=== PATIENT | male | born 1950 | race Caucasian/White ===

== ENCOUNTER 2020-12-05 10:50 | Inpatient (IN) | payer SELFPAY ==
[~2020-12-05] VITALS: Ht 177.8 cm; Wt 93.6 kg
[2020-12-05 11:15] LABS: BASOPHILS ABSOLUTE AUTO 0.02 K/mm3 (0.00-0.23); BASOPHILS PERCENT AUTO 0 % (0-2); EOSINOPHILS ABSOLUTE AUTO 0.01 K/mm3 (0.00-0.68); EOSINOPHILS PERCENT AUTO 0 % (0-6); Hematocrit 32.4 % (37.0-53.0); Hemoglobin 11.9 g/dL (13.5-17.5); IMMATURE GRAN ABSOLUTE AUTO 0.08 K/mm3 (0.00-0.10); IMMATURE GRAN PERCENT AUTO 1 % (0-1); LYMPHOCYTES ABSOLUTE AUTO 0.68 K/mm3 (0.84-5.20); LYMPHOCYTES PERCENT AUTO 7 % (21-46); MONOCYTES ABSOLUTE AUTO 0.69 K/mm3 (0.16-1.47); MONOCYTES PERCENT AUTO 7 % (4-13); Mean Corpuscular HGB 39.3 pg (26.0-34.0); Mean Corpuscular HGB Conc 36.7 g/dL (31.5-36.5); Mean Corpuscular Volume 107 fL (80-100); Mean Platelet Volume 11.2 fL (9.1-12.4); NEUTROPHILS ABSOLUTE AUTO 8.89 K/mm3 (1.96-9.15); NEUTROPHILS PERCENT AUTO 86 % (41-73); NRBC ABSOLUTE 0.04 K/mm3 (0.00-0.02); NRBC Auto 0.4 /100 WBC (0.0-0.2); Platelet Count 206 K/mm3 (150-400); RDW Coefficient Variation 20.7 % (11.7-14.2); RDW Standard Deviation 77.6 fL (35.1-46.3); Red Blood Cell Count 3.03 M/mm3 (4.30-5.90); White Blood Cell Count 10.37 K/mm3 (4.00-11.30)
[2020-12-05 11:36] LABS: Magnesium, Blood 2.4 mg/dL (1.6-2.4)
[2020-12-05 11:41] LABS: Alanine Aminotransfer (ALT/SGP 101 U/L (12-78); Albumin, Blood 1.6 g/dL (3.4-5.0); Albumin/Globulin Ratio 0.5 (0.8-1.8); Alk Phos 94 U/L (50-136); Anion Gap 18 mmol/L (6-16); Aspartate Aminotrans (AST/SGOT 509 U/L (12-37); Bilirubin, Total 21.3 mg/dL (0.1-1.0); Blood Urea Nitrogen 57 mg/dL (8-24); Bun/Creatinine Ratio 14.7 (12.0-20.0); CO2, Blood 20 mmol/L (21-32); Calcium, Blood 8.6 mg/dL (8.5-10.1); Chloride, Blood 89 mmol/L (98-108); Creatinine, Blood 3.87 mg/dL (0.60-1.20); Ethanol (Alcohol), Blood, Med <3 mg/dL; Globulin, Blood 3.5 g/dL (2.2-4.0); Glomerular Filtration Rate 15 (60-); Glucose, Blood 107 mg/dL (70-99); Potassium, Blood 5.6 mmol/L (3.5-5.5); Sodium, Blood 127 mmol/L (136-145); Total Protein, Blood 5.1 g/dL (6.4-8.2)
[2020-12-05 11:56] LABS: SARS-Cov-2 (COVID-19) PCR, MMC NEGATIVE (NEGATIVE)
[2020-12-05 13:49] LABS: International Normalized Ratio 3.92; Prothrombin Time Results 39.2 Sec (9.7-11.5)
[2020-12-05 14:37] LABS: Base Excess Venous -9.3 mmol/L; Bicarbonate Venous 17.4 mmol/L (24.0-30.0); PCO2 Venous 38.2 mmHg (38-42); PO2 Venous 73.8 mmHg (38-42)
[2020-12-05 14:38] LABS: pH Blood Venous 7.27 (7.34-7.37)
[2020-12-05 16:53] LABS: Beta-hydroxybutyrate 5.9 mg/dL (0.2-2.8); CPK Creatine Kinase 173 U/L (39-308); Thyroid Stimulating Hormone 0.797 uIU/mL (0.360-4.800)
[2020-12-05 16:56] LABS: Acetaminophen, Random <2.0 ug/mL (10.0-30.0); Salicylate <1.7 mg/dL (2.8-20.0)
[2020-12-05 18:41] LABS: Calcium, Blood 8.6 mg/dL (8.5-10.1); Creatinine, Blood 3.94 mg/dL (0.60-1.20); Potassium, Blood 4.2 mmol/L (3.5-5.5)
[2020-12-05 20:47] LABS: Source, Urine Voided
[2020-12-05 20:58] LABS: Appearance, Urine Cloudy (Clear); Bilirubin, Urine 3+ (Neg); Blood, Urine 4+ (Neg); Color, Urine Amber (P-Yellow); Glucose Qualitative, Urine 1+ (Neg); Ketones, Urine 1+ (Neg); Leukocyte Esterase, Urine 1+ (Neg); Nitrite, Urine Neg (Neg); Protein, Urine 3+ (Neg); Urobilinogen, Urine 2+ (Normal); pH, Urine 6.5 (5.0-8.0)
[2020-12-05 21:00] LABS: Bacteria Mod /hpf; Hyaline Casts 0-2 /lpf (0-2); Red Blood Cells, Urine 0-2 /hpf (0-2); Squamous Epithelial Cells Not Seen /hpf (Few)
--- NOTE | 2020-12-05 21:00 | NUR ---
DR HONEYCUTT UPDATED. HE WILL BE IN SHORTLY TO SEE PT AND PLACE CL. 25GM ALBUMIN ORDERED.
[2020-12-05 21:09] LABS: U Amphetamine Screen Not Detected; U Barbituate Screen Not Detected; U Benzodiazapine Screen Not Detected; U Buprenorphine Screen Not Detected; U Cannabinoids Screen Not Detected; U Cocaine Screen Not Detected; U Methadone Screen Not Detected; U Methamphetamine Screen Not Detected; U Opiates Screen Not Detected; U Oxycodone Screen DETECTED; U Phencyclidine Screen Not Detected; U Propoxyphene Screen Not Detected
[2020-12-05 21:31] LABS: PCO2 Arterial 38.2 mmHg (35-45); PO2 Arterial 74.2 mmHg (80-100); pH Blood Arterial 7.29 (7.35-7.45)
--- NOTE | 2020-12-05 22:55 | NUR ---
DIALYSIS CATH OBSTRUCTED, DR HONEYCUTT NOTIFIED. IV GTTS CHANGED TO PIV AND DR. HONEYCUTT TO PLACE [facility].
[2020-12-06 03:30] LABS: BASOPHILS ABSOLUTE AUTO 0.02 K/mm3 (0.00-0.23); BASOPHILS PERCENT AUTO 0 % (0-2); Hematocrit 22.6 % (37.0-53.0); Hemoglobin 8.2 g/dL (13.5-17.5); LYMPHOCYTES ABSOLUTE AUTO 1.19 K/mm3 (0.84-5.20); LYMPHOCYTES PERCENT AUTO 12 % (21-46); MONOCYTES ABSOLUTE AUTO 0.77 K/mm3 (0.16-1.47); MONOCYTES PERCENT AUTO 8 % (4-13); Mean Corpuscular HGB 39.4 pg (26.0-34.0); Mean Corpuscular HGB Conc 36.3 g/dL (31.5-36.5); Mean Corpuscular Volume 109 fL (80-100); Mean Platelet Volume 10.4 fL (9.1-12.4); NRBC ABSOLUTE 0.05 K/mm3 (0.00-0.02); NRBC Auto 0.5 /100 WBC (0.0-0.2); Platelet Count 127 K/mm3 (150-400); RDW Coefficient Variation 20.6 % (11.7-14.2); Red Blood Cell Count 2.08 M/mm3 (4.30-5.90); White Blood Cell Count 9.78 K/mm3 (4.00-11.30)
[2020-12-06 03:32] LABS: EOSINOPHILS ABSOLUTE AUTO 0.04 K/mm3 (0.00-0.68); EOSINOPHILS PERCENT AUTO 0 % (0-6); IMMATURE GRAN ABSOLUTE AUTO 0.05 K/mm3 (0.00-0.10); IMMATURE GRAN PERCENT AUTO 1 % (0-1); NEUTROPHILS ABSOLUTE AUTO 7.71 K/mm3 (1.96-9.15); NEUTROPHILS PERCENT AUTO 79 % (41-73)
[2020-12-06 03:52] LABS: Magnesium, Blood 2.7 mg/dL (1.6-2.4); Phosphorus, Blood 4.5 mg/dL (2.5-4.9)
[2020-12-06 03:58] LABS: Albumin, Blood 3.1 g/dL (3.4-5.0); Albumin/Globulin Ratio 1.6 (0.8-1.8); Bilirubin, Total 23.9 mg/dL (0.1-1.0); Calcium, Blood 7.5 mg/dL (8.5-10.1); Creatinine, Blood 3.85 mg/dL (0.60-1.20); Globulin, Blood 1.9 g/dL (2.2-4.0); Potassium, Blood 3.9 mmol/L (3.5-5.5)
[2020-12-06 04:04] LABS: Bilirubin, Direct 17.3 mg/dL (0.0-0.3); Bilirubin, Indirect 6.6 mg/dL (0.1-0.7)
[2020-12-06 04:19] LABS: Prothrombin Time Results 48.2 Sec (9.7-11.5)
[2020-12-06 04:22] LABS: International Normalized Ratio 4.88
--- NOTE | 2020-12-06 04:46 | NUR ---
12/05/2020 1915 PT NEWLY ADMITTED TO THE UNIT. JAUNDICE ON PRESENTATION. 12/05/2020 ALTERED MENTAL STATUS NOTED. UNABLE TO FOLLOW COMMANDS. OBTUNDED. POOR RESPONSE TO PAINFUL STIIMULUS. 12/05/20201999 URINARY RETENTIION NOTED: PROVIDER ON CAMPUS NOTIFIED: FERNANDES AND RECTAL TUBES PLACED WITH MILD MECH RESISTANCE NOTED NO ADVERSE EFFECTS. NO OUTPUT TO RECTAL TUBE. HOLDING LACTOSE UNTIL PROVIDER PLACES LINES. DR. KATHLEEN AT BEDSIDE 0. 0 MULTI ATTEMPTS MADE TO RIGHT IJ/ LEFT SUBCLAVIAN AND IJ/ RIGHT GROIN HEMATOMA CONTROLED TO THE RIGHT GROIN. LEFT SUBCLAVIAN HEMATOMA NOTED CONTROLED. HEMOSTASIS ACHIEVED TO ALL ATTEMPTED SITES. BRUISING NOTED POST ATTEMPTS BUT CONTROLLED AND HEALING. 0 TDC PLACED TO RIGHT GROING LATER D/C AT BEDSIDE BY PROVIDER MANUAL PRESSURE APPLIED. DOBHOFF ATTEMPTED WITH PATIENT UNABLE TO TOLERATE: O2 SATS IN 70-80S. REMOVED. NC 5 LITERS CHANGED TO NON-REBREATHER. O2 SATS UP TO 95 %. ABG OBTAINED FROM RIGHT RADIAL WRIST. MANUAL PRESSURE HELD BY PROVIDER. CHEST XRAY OBTAINED REVIEWED BY BEDSIDE PROVIDER. LEFT FEMORAL QUAD LUMEN CLEARED FOR USE. 2300 SLIGHTLY HYPOTHEMIC WARM BLANKETS APPLIED. HOLDING BEAR WARMER DUE TO NOISE FATIGUE CONCERN TO PATIENT. 0000- LEVO TITRATED THROUGHOUT SHIFT: 8MCG, 10MCG, 12 MCG BACK DOWN TO 8MCG AT 0200. MAINTAINED AT 6MCG 0400. FLUIDS BOLUSED 3 LITERS NS GIVEN. 4x 100 ML ALBUMIN 0.25% GIVEN BY 12/06/2020 0200. 12/06/2020 0200- 0400 PATIENT RESTING WITH EYES CLOSED. 0400 LABS DRAWN. PARTIAL BATH, FULL LINEN CHANGED [phone]: SEVERAL DOCUMENTED ECG BURSTS OF V TACH TOTAL 47 BEATS WITH LONGEST SERIES OF BURST 5 BEATS. 0400: LACTULOSE ADMINISTERED RECTALLY WITH MODERATE PRESSURE RESISTANCE. CLAMPED. INCREASE ALERTNESS AND AGIGTATION. 0440: UNCLAMPED WITH FAINT LIGHT BROWN DRAINAGE. 300CC ADMINISTERED. COLA/TEA CLOUDY URINE REMAINS THROUGHOUT SHIFT. 0500: CRITICAL LABS REPORTED TO CAMPUS HOSPITALIST NOTIFIED OF CMP AND CBC RESULTS AND COAGS. RECOMMENDED NOT TO TRANSFUSION AT THIS TIME. AM TEAM TO REVIEW AND UPDATE SISTER FLAVIO OLIVA CELL: [phone] HM: [phone]. FLAVIO UPDATED TWICE DURING SHIFT PATIENT TO REMAIN FULL CODE BUT WILL CONSIDER DNR IF CURATIVE MEASURES EXAUSTED. WILL PURSUE COMFORT MEASURE FOCUS. 0530 PATIENT IMPROVING ALERTNESS. PATIENT MAKES STRONG ATTEMPTS TO FOLLOW SIMPLE COMMANDS. NON-REBREATHER REMAINS HUMIDIFIED AT 6 LITERS. 0534: PATIENT REMAINS GUARDED: FAIR. ANDREI PUGA-C
--- NOTE | 2020-12-06 09:41 | NUR ---
Ethics consultation service provided. Social details, medical history and clinical prognosis discussed with the ordering lunchroom worker. The principal is a 70 y/o fragile gentleman with a tragic diagnosis of end stage liver disease, secondary to chronic over-consumption, who is hospice elegible, and not expected to benefit from aggressive medical treatement. Given the principals terminal condition and extremely poor prognosis, I explained to his that it would be ethically appropriate and most clinically reasonable to forgo chest compressions, and mechanical intubation, and transition him to comfort care. She expressed understanding and was agreeable to the plan. Thank you for this consult. Kamron Ortiz ThD
--- NOTE | 2020-12-06 11:00 | NUR ---
COMFORT CARE DECISION MADE TO MAKE PT DNR AND TRANSITION TO COMFORT CARE. ALL GTT'S DISCONTINUED. PT REMAINS LETHARGIC/OBTUNDED. PT MOANS OUT AT TIMES, BUT APPEARS TO BE RESTING COMFORTABLY AT THIS TIME. PT FAMILY PLANS TO COME IN TO SEE PT. WILL CONTINUE TO MONITOR.
--- NOTE | 2020-12-06 16:07 | NUR ---
PT ARRIVED TO UNIT FROM ICU. SLIDE WITH SLIDE SHEET TO NEW BED. PT UNRESPONSIVE TO QUESTIONS BUT WILL MAKE SLIGHT GRUNTING NOISES. PT DOES NOT APPEAR TO BE HAVING DIFFICULTY BREATHING, BREATHS APPEAR UNLABORED AT THIS TIME. SKIN YELLOW T/O. RECTAL TUBE AND FERNANDES BOTH PATENT AND IN PLACE. PLAN IS TO CONTINUE WITH COMFORT MEASURES AND REPOSITIONS EVERY 2 HOURS.
--- NOTE | 2020-12-06 16:18 | NUR ---
Pt transferred to surgical floor for comfort care. Pt appears to be comfortable. Resp not labored at this time. Appears to be sleeping with mouth open. Left undisturbed at this time. PC to follow for symptom management.
--- NOTE | 2020-12-06 18:52 | NUR ---
attempted to perform oral care. pt close mouth and would not let me clean mouth. will pass on to oncoming shift and attempt again.
--- NOTE | 2020-12-06 20:15 | NUR ---
PT RESTING IN BED, RESP E/U, NO DISTRESS NOTED AT THSI TIME.
--- NOTE | 2020-12-07 02:53 | NUR ---
PT FOUND W/BLOODY EMESIS FROM MOUTH AND NOSE. ORAL CARE AND SX COMPLETED. PERSONAL CARE AND FULL LINNEN CHANGE DONE. PT WEAK, MINIMALLY RESPONSIVE, UNABLE TO ASSIST W/REPOSITIONING. PT MEDICATED PRIOR TO REPOSITIONING.
--- NOTE | 2020-12-07 05:58 | NUR ---
PT REMAINS MINIMALLY RESPONSIVE. PT DOES OCC OPEN EYES, AND WILL SLIGHTLY OPEN MOUTH FOR ORAL CARE. PT MOANS OFTEN DURING NIGHT, MEDICATED FOR PAIN PER EMAR, APPEARS MORE COMFORTABLE AFTER PAIN MEDS GIVEN. PT HAD 1 EPISODE OF BLOODY EMESIS, ORAL CARE PROVIDED. SCANT BROWN URINE IN FERNANDES, SMALL AMT OF STOOL IN RECTAL TUBE. PT GENTLY REPOSITIONED Q2 DURING NIGHT.
--- NOTE | 2020-12-07 09:38 | NUR ---
ENTERED PTS ROOM AT 0720, PT DID NOT APPEAR TO BE BREATHING, NO APICAL PULSE HEARD. PRONOUNCED AT 0721. , PRIMARY MD, DONOR LINE, [facility], AND [facility] NOTIFIED. FINAL DISCHARGE DOCUMENTATION DONE.
[2020-12-07 10:00] LABS: HBSAG SCREEN Negative (Negative); HEP A AB, IGM Negative (Negative); HEP B CORE AB, IGM Negative (Negative); HEP B CORE AB, TOT Negative (Negative); HEP C VIRUS AB <0.1 (0.0-0.9)
== END 2020-12-07 09:00 | DRG 441 ==
LOC: ER 10:50 → ICUW 13:38 → ERHOLD 13:38 → ICUE 13:38 → SURS 12-06 16:00
PROVIDERS: Emergency Medicine; Internal Medicine Critical Care Medicine; Nurse Practitioner Acute Care; ADMIT Internal Medicine
PROC: 05HM33Z Insertion of Infusion Device into Right Internal Jugular Vein, Percutaneous Approach (ICD-10-PCS; principal; 2020-12-05)
PROC: 06HY33Z Insertion of Infusion Device into Lower Vein, Percutaneous Approach (ICD-10-PCS; 2020-12-05)
PROC: 3E033XZ Introduction of Vasopressor into Peripheral Vein, Percutaneous Approach (ICD-10-PCS; 2020-12-05)
PROC: HZ2ZZZZ Detoxification Services for Substance Abuse Treatment (ICD-10-PCS; 2020-12-05)
DX: K72.00 Acute and subacute hepatic failure without coma (principal); G92 Toxic encephalopathy; N17.9 Acute kidney failure, unspecified; E87.1 Hypo-osmolality and hyponatremia; N39.0 Urinary tract infection, site not specified; K56.7 Ileus, unspecified; D68.4 Acquired coagulation factor deficiency; E46 Unspecified protein-calorie malnutrition; R57.9 Shock, unspecified; Z51.5 Encounter for palliative care; Z20.822 Contact with and (suspected) exposure to COVID-19; Z66 Do not resuscitate; K70.11 Alcoholic hepatitis with ascites; K70.31 Alcoholic cirrhosis of liver with ascites; E16.2 Hypoglycemia, unspecified; F17.210 Nicotine dependence, cigarettes, uncomplicated; R09.02 Hypoxemia; E87.5 Hyperkalemia; D53.9 Nutritional anemia, unspecified; Z68.31 Body mass index [BMI] 31.0-31.9, adult
CPT/HCPCS: 36415; 36556; 36600; 51702; 70450; 71045; 76700; 80048; 80053; 80074; 81001; 82010; 82140; 82248; 82550; 82607; 82746; 82803; 82947; 83605; 83690; 83735; 83880; 84100; 84443; 85025; 85610; 85730; 86317; 86704; 86708; 86803; 87086; 87340; 93005; 93010; 96360; 96361; 99285-25; A9270; C1751; C1752; C9113; G0480; J0696; J1170; J2060; J2270; J3411; J3430; J3475; J7030; J7042; J7060; J7070; J7120; P9046; U0004